=== PATIENT | male | born 1945 | race Caucasian/White ===

== ENCOUNTER 2018-01-05 10:07 | Emergency (ER) | payer SELFPAY ==
[~2018-01-05] VITALS: Ht 162.6 cm; Wt 56.7 kg
[2018-01-05 10:19] VITALS: BP 181/106
[2018-01-05] MEDS ORDERED: FLUORESCEIN OPTH STRIP 0.6 MG ONE (10:40)
[2018-01-05 11:22] VITALS: BP 155/97
== END 2018-01-05 11:22 | disposition home or self-care (01) ==
LOC: MED 10:07
DX: T15.02XA Foreign body in cornea, left eye, initial encounter (principal); X58.XXXA Exposure to other specified factors, initial encounter; Y93.89 Activity, other specified; Y92.89 Other specified places as the place of occurrence of the external cause; Y99.8 Other external cause status
CPT/HCPCS: 99284